=== PATIENT | female | born 1950 | race Caucasian/White ===

== ENCOUNTER → 2016-06-15 | Day surgery (SDC) | payer BC ==
[~2016-06-15] MED LIST: ABILIFY15 MG PO; BUSPIRONE HCL15 MG PO; DITROPAN XL10 MG PO; EVISTA60 MG PO; FENOFIBRATE160 MG PO; FISH OIL 1,2001 EACH PO; IBUPROFEN800 MG PO; LASIX 40 MG TAB40 MG PO; NIACIN500 MG PO; NORCO 7.5-3251 EACH PO; OMEPRAZOLE20 M1 PO; SYNTHROID50 MCG PO; VITAMIN C 500500 MG PO; ZOLOFT100 MG PO
== END | disposition home or self-care (01) ==
LOC: OR 07:26
PROVIDERS: Surgery
PROC: B514ZZA Fluoroscopy of Left Jugular Veins, Guidance (ICD-10-PCS; 2016-06-15)
PROC: 05HN33Z Insertion of Infusion Device into Left Internal Jugular Vein, Percutaneous Approach (ICD-10-PCS; principal; 2016-06-15 08:45)
DX: C50.911 Malignant neoplasm of unspecified site of right female breast (principal); M19.90 Unspecified osteoarthritis, unspecified site; E78.00 Pure hypercholesterolemia, unspecified; E07.9 Disorder of thyroid, unspecified; Z79.899 Other long term (current) drug therapy; Z90.13 Acquired absence of bilateral breasts and nipples; Z82.61 Family history of arthritis; Z80.3 Family history of malignant neoplasm of breast; Z83.3 Family history of diabetes mellitus
CPT/HCPCS: ECHO; 71010; 77001; 93306; C1769; C1788; J0690; J1644; J2250; J3370; J7030; J7120

== ENCOUNTER → 2016-07-27 | Outpatient (CLI) | payer BC | LOC: ECHO 07-19 12:00 | DX: C50.411 Malignant neoplasm of upper-outer quadrant of right female breast (principal); Z13.820 Encounter for screening for osteoporosis; C77.3 Secondary and unspecified malignant neoplasm of axilla and upper limb lymph nodes; Z17.0 Estrogen receptor positive status [ER+]; I51.7 Cardiomegaly; I07.1 Rheumatic tricuspid insufficiency; I27.2 Other secondary pulmonary hypertension | CPT/HCPCS: ECHO; 93306 ==